=== PATIENT | male | born 1995 | race Caucasian/White ===

== ENCOUNTER 2017-08-16 00:58 | Emergency (ER) | payer OTHER ==
[~2017-08-16] VITALS: Ht 167.6 cm; Wt 80.5 kg
[~2017-08-16 00:58] MED LIST: AMPH30CA3 PO; ARIP10TA8 PO; CLON0.2T PO; FLUO-126 PO
[2017-08-16 01:00] VITALS: BP 140/75
[2017-08-16] MEDS ORDERED: CIPROFLOXACIN HCL 0.2%/HYDROCORT 1% 10 ML OTIC SUSPENSION AD ONE (01:30)
== END 2017-08-16 01:44 | disposition home or self-care (01) ==
LOC: EMS 00:59
DX: H60.91 Unspecified otitis externa, right ear (principal)
CPT/HCPCS: 99283

== ENCOUNTER 2021-06-12 11:13 | Emergency (ER) | payer OTHER ==
[~2021-06-12] VITALS: Ht 167.6 cm; Wt 77.3 kg
[~2021-06-12 11:13] MED LIST changes: -ARIP10TA8 PO; -CLON0.2T PO; -FLUO-126 PO; +FLUO20CA36 PO
[2021-06-12 11:18] VITALS: BP 135/67
[2021-06-12 12:46] LABS: BASOPHILS % (AUTO) 0.8 % (0.0-2.0); EOSINOPHILS % (AUTO) 0.6 % (1.0-6.0); HEMATOCRIT 47.4 % (41-53); HEMOGLOBIN 16.2 g/dL (13.5-17.5); LYMPHOCYTES # (AUTO) 1.8 K/uL (1.0-4.8); LYMPHOCYTES % (AUTO) 19.6 % (22.0-44.0); MEAN CORPUSCULAR HEMOGLOBIN 31.5 pg (26.0-34.0); MEAN CORPUSCULAR HGB CONC 34.1 G/dL (31.0-37.0); MEAN CORPUSCULAR VOLUME 92 fL (80-100); MONOCYTES # (AUTO) 0.7 K/uL (0.1-1.0); MONOCYTES % (AUTO) 7.6 % (2.0-9.0); NEUTROPHILS # (AUTO) 6.4 K/uL (1.8-7.7); NEUTROPHILS % (AUTO) 71.4 % (40.0-70.0); PLATELET COUNT (AUTO) 196 K/uL (150-450); RED BLOOD CELL COUNT(AUTO) 5.14 MIL/uL (4.50-5.90); RED CELL DISTRIBUTION WIDTH 13.6 % (11.5-14.5)
[2021-06-12 12:58] LABS: ANION GAP 8 mmol/L (8-16); CALCIUM, TOTAL 8.8 mg/dL (8.8-10.5); CARBON DIOXIDE 29 mmol/L (22-29); CHLORIDE 104 mmol/L (98-107); CREATININE 0.82 mg/dL (0.60-1.30); GLOMERULAR FILTR. RATE CALC > 60 mL/min (>60); GLUCOSE,RANDOM 92 mg/dL (70-110); POTASSIUM 4.7 mmol/L (3.5-5.1); SODIUM SERUM 141 mmol/L (136-145); UREA NITROGEN, BLOOD 12 mg/dL (7-18)
== END 2021-06-12 13:40 | disposition home or self-care (01) ==
LOC: EMS 11:16
DX: R51.9 Headache, unspecified (principal); R11.10 Vomiting, unspecified
CPT/HCPCS: 70450; 80048; 85025; 99284

== ENCOUNTER 2021-06-15 23:13 | Emergency (ER) | payer OTHER ==
[~2021-06-15] VITALS: Ht 175.3 cm; Wt 77.3 kg
[2021-06-15] MEDS ORDERED: METOCLOPRAMIDE HCL 5 MG/ML 2 ML VIAL IVP ONE (23:30)
[2021-06-15] MEDS ORDERED: SODIUM CHLORIDE 0.9% 1,000 ML IV ONE (23:30)
[2021-06-15] MEDS ORDERED: ACETAMINOPHEN 500 MG TABLET PO ONE (23:30)
[2021-06-15] MEDS ORDERED: DiphenhydrAMINE HCL 50 MG/ML VIAL IVP ONE (23:30)
[2021-06-16 01:56] VITALS: BP 103/57
== END 2021-06-16 04:00 | disposition home or self-care (01) ==
LOC: EMS 23:14
DX: R51.9 Headache, unspecified (principal); F12.90 Cannabis use, unspecified, uncomplicated
CPT/HCPCS: 70450; 96361; 96374; 96375; 99284; J1200; J2765; J7030

== ENCOUNTER 2021-08-30 16:40 | Inpatient (IN) | payer MEDICAID ==
[~2021-08-30] VITALS: Ht 172.7 cm; Wt 74.8 kg
[2021-08-31] MEDS ORDERED: HALOPERIDOL 5 MG TABLET PO PRN (13:45)
[2021-08-31 16:17] VITALS: BP 137/87
[2021-08-31] MEDS ORDERED: INFLUENZA VIRUS VACCINE QVS 2021-22 (6MO+)/PF 60 MCG/0.5 ML SYRINGE IM. ONE (22:00)
[2021-09-01 00:24] VITALS: BP 133/82
[2021-09-01 08:21] VITALS: BP 133/75
[2021-09-01] MEDS: SERTRALINE HCL 50 MG TABLET PO SCH (09:15)
[2021-09-01] MEDS: ARIPiprazole 5 MG TABLET PO SCH (09:16)
[2021-09-01 10:43] LABS: EOSINOPHILS % (AUTO) 1.4 % (1.0-6.0); HEMATOCRIT 51.5 % (41-53); HEMOGLOBIN 17.3 g/dL (13.5-17.5); LYMPHOCYTES # (AUTO) 2.4 K/uL (1.0-4.8); LYMPHOCYTES % (AUTO) 25.3 % (22.0-44.0); MEAN CORPUSCULAR HEMOGLOBIN 31.3 pg (26.0-34.0); MEAN CORPUSCULAR HGB CONC 33.6 G/dL (31.0-37.0); MEAN CORPUSCULAR VOLUME 93 fL (80-100); MONOCYTES # (AUTO) 0.9 K/uL (0.1-1.0); MONOCYTES % (AUTO) 9.9 % (2.0-9.0); NEUTROPHILS # (AUTO) 5.8 K/uL (1.8-7.7); NEUTROPHILS % (AUTO) 62.4 % (40.0-70.0); PLATELET COUNT (AUTO) 177 K/uL (150-450); RED BLOOD CELL COUNT(AUTO) 5.54 MIL/uL (4.50-5.90); RED CELL DISTRIBUTION WIDTH 13.4 % (11.5-14.5)
[2021-09-01 10:56] LABS: HEMOGLOBIN A1C 5.2 % (3.8-5.6)
[2021-09-01 11:06] LABS: ALANINE AMINOTRANSFERASE 19 U/L (12-78); ALBUMIN 4.6 g/dL (3.4-5.0); ALKALINE PHOSPHATASE 78 U/L (46-116); ANION GAP 13 mmol/L (8-16); ASPARTATE AMINOTRANSFERASE 16 U/L (15-37); BILIRUBIN,TOTAL 0.8 mg/dL (0.1-1.0); CALCIUM, TOTAL 9.4 mg/dL (8.8-10.5); CARBON DIOXIDE 27 mmol/L (22-29); CHLORIDE 104 mmol/L (98-107); CHOL/HDL RATIO 3.4 (4.2-7.3); CHOLESTEROL 211 mg/dL (131-200); CREATININE 1.09 mg/dL (0.60-1.30); FREE T4 (FREE THYROXINE) 1.11 ng/dL (0.76-1.46); GLOMERULAR FILTR. RATE CALC > 60 mL/min (>60); GLUCOSE,RANDOM 76 mg/dL (70-110); HDL CHOLESTEROL 62 mg/dL (40-60); LDL CHOL (CALC.) 127 mg/dL (0-130); POTASSIUM 4.3 mmol/L (3.5-5.1); SODIUM SERUM 144 mmol/L (136-145); THYROID STIMULATING HORMONE 0.67 uIU/mL (0.36-3.74); TOTAL PROTEIN, SERUM 8.7 g/dL (6.4-8.2); TRIGLYCERIDES 109 mg/dL (15-150); UREA NITROGEN, BLOOD 17 mg/dL (7-18)
[2021-09-01] MEDS ORDERED: ONDANSETRON HCL 4 MG TABLET PO PRN (13:30)
[2021-09-01] MEDS ORDERED: ALBUTEROL SULFATE HFA 90 MCG/PUFF 8 GM INHALER IH PRN (13:30)
[2021-09-01] MEDS ORDERED: CloNIDine HCL 0.1 MG TABLET PO PRN (13:30)
[2021-09-01] MEDS ORDERED: IBUPROFEN 400 MG TABLET PO PRN (13:30)
[2021-09-01] MEDS ORDERED: MAGNESIUM HYDROXIDE SUSPENSION 30 ML UDCUP PO PRN (13:30)
[2021-09-01] MEDS ORDERED: PETROLATUM,WHITE 28 GM JELLY TP PRN (13:30)
[2021-09-01] MEDS ORDERED: LOPERAMIDE HCL 2 MG CAPSULE PO PRN (13:30)
[2021-09-01] MEDS ORDERED: GuaiFENesin/D-METHORPHAN [SUGAR-FREE] 200-20MG/10 ML SYRUP UDCUP PO PRN (13:30)
[2021-09-01] MEDS ORDERED: ACETAMINOPHEN 325 MG TABLET PO PRN (13:30)
[2021-09-01] MEDS ORDERED: DOCUSATE SODIUM 100 MG CAPSULE PO PRN (13:30)
[2021-09-01] MEDS ORDERED: MAG HYDROX/AL HYDROX/SIMETH ES 30 ML SUSPENSION UDCUP PO PRN (13:30)
[2021-09-01 16:07] VITALS: BP 141/94
[2021-09-01] MEDS: NICOTINE 14 MG/24 HOUR PATCH TD PRN (16:59)
[2021-09-02 04:24] VITALS: BP 108/68
[2021-09-02 08:12] VITALS: BP 144/88
[2021-09-02] MEDS: SERTRALINE HCL 50 MG TABLET PO SCH (08:51)
[2021-09-02] MEDS: ARIPiprazole 5 MG TABLET PO SCH (08:51)
[2021-09-02] MEDS: NICOTINE 14 MG/24 HOUR PATCH TD PRN (08:52)
[2021-09-02 16:16] VITALS: BP 146/82
[2021-09-02] MEDS: LORazepam 2 MG TABLET PO PRN (16:33)
[2021-09-02] MEDS: ZOLPIDEM TARTRATE 10 MG TABLET PO PRN (21:04)
[2021-09-03 06:05] VITALS: BP 148/79
[2021-09-03] MEDS: SERTRALINE HCL 50 MG TABLET PO SCH (09:06)
[2021-09-03] MEDS: ARIPiprazole 5 MG TABLET PO SCH (09:06)
[2021-09-03] MEDS: NICOTINE 14 MG/24 HOUR PATCH TD PRN (09:07)
[2021-09-03 10:49] VITALS: BP 144/80
[2021-09-03 16:43] VITALS: BP 133/82
[2021-09-03] MEDS: ZOLPIDEM TARTRATE 10 MG TABLET PO PRN (20:35)
[2021-09-04 06:14] VITALS: BP 148/83
[2021-09-04] MEDS: SERTRALINE HCL 50 MG TABLET PO SCH (08:27)
[2021-09-04] MEDS: ARIPiprazole 5 MG TABLET PO SCH (08:27)
[2021-09-04] MEDS: LORazepam 2 MG TABLET PO PRN ×2 (08:30→17:14)
[2021-09-04 09:24] VITALS: BP 127/78
[2021-09-04] MEDS: NICOTINE 14 MG/24 HOUR PATCH TD PRN (12:16)
[2021-09-04 16:21] VITALS: BP 125/83
[2021-09-04] MEDS: ZOLPIDEM TARTRATE 10 MG TABLET PO PRN (20:04)
[2021-09-05 06:05] VITALS: BP 129/79
[2021-09-05 08:32] VITALS: BP 138/95
[2021-09-05] MEDS: ARIPiprazole 5 MG TABLET PO SCH (08:40)
[2021-09-05] MEDS: SERTRALINE HCL 50 MG TABLET PO SCH (08:40)
[2021-09-05] MEDS ORDERED: ARIPiprazole LAUROXIL,SUBMICR. ER SUSPENSION 675 MG/2.4 ML SYRINGE IM ONE (14:30)
[2021-09-05] MEDS ORDERED: ARIPiprazole LAUROXIL ER SUSPENSION 662 MG/2.4 ML SYRINGE IM ONE (14:30)
[2021-09-05 16:31] VITALS: BP 137/79
[2021-09-05] MEDS: ZOLPIDEM TARTRATE 10 MG TABLET PO PRN (23:45)
[2021-09-06 00:38] VITALS: BP 127/73
[2021-09-06 08:25] VITALS: BP 131/73
[2021-09-06] MEDS: ARIPiprazole 5 MG TABLET PO SCH (08:40)
[2021-09-06] MEDS: SERTRALINE HCL 50 MG TABLET PO SCH (08:40)
[2021-09-06] MEDS: LORazepam 2 MG TABLET PO PRN (08:43)
[2021-09-06] MEDS: NICOTINE 14 MG/24 HOUR PATCH TD PRN (09:02)
[2021-09-06] MEDS ORDERED: ARIP662S IM (09:50)
[2021-09-06] MEDS ORDERED: SERT-158 PO (09:50)
[2021-10-05] MEDS ORDERED: ARIPiprazole LAUROXIL ER SUSPENSION 662 MG/2.4 ML SYRINGE IM SCH (09:00)
== END 2021-09-06 13:46 | disposition home or self-care (01) | DRG 750 ==
LOC: B3A 08-31 14:21
DX: F25.1 Schizoaffective disorder, depressive type (principal); R45.851 Suicidal ideations; F79 Unspecified intellectual disabilities; F10.10 Alcohol abuse, uncomplicated; E78.5 Hyperlipidemia, unspecified; F12.10 Cannabis abuse, uncomplicated; F43.12 Post-traumatic stress disorder, chronic; F98.8 Other specified behavioral and emotional disorders with onset usually occurring in childhood and adolescence; Z59.00 Homelessness unspecified; Z79.899 Other long term (current) drug therapy; Z81.8 Family history of other mental and behavioral disorders; Z91.52 Personal history of nonsuicidal self-harm; F90.9 Attention-deficit hyperactivity disorder, unspecified type
CPT/HCPCS: 80053; 80061; 83036; 84436; 84439; 84443; 85025; 90686; Q9967